=== PATIENT | female | born 2005 | race African-American/Black ===

== ENCOUNTER 2024-05-19 23:13 | Emergency (ER) | payer OTHER ==
[~2024-05-19] VITALS: Ht 160 cm; Wt 75.0 kg
[2024-05-19 23:19] VITALS: TEMP 98.2
[2024-05-19] MEDS: LIDOCAINE 1% 10 ML VIAL SQ ONE (23:42)
[2024-05-20] VITALS: BP 116/70; PULSE 110; RESP 16
[2024-05-20] MEDS: PERTUSS(ACELL),DIPH,TET/PF 0.5 ML SYRINGE [ADULT] IM. ONE (00:04)
== END 2024-05-20 00:15 | disposition home or self-care (01) ==
LOC: EMS 23:13
DX: S01.81XA Laceration without foreign body of other part of head, initial encounter (principal); F10.229 Alcohol dependence with intoxication, unspecified; X58.XXXA Exposure to other specified factors, initial encounter; Y93.89 Activity, other specified; Y92.89 Other specified places as the place of occurrence of the external cause; Y99.8 Other external cause status
CPT/HCPCS: 99283; 90715; 12011; 90471; J3490